=== PATIENT | female | born 1990 | race Caucasian/White ===

== ENCOUNTER 2024-09-01 22:25 | Emergency (ER) | payer OTHER, SELFPAY ==
--- NOTE | ~2024-09-01 | CT_ITS ---
CT abdomen pelvis w con Ordering provider: Iban Briones MD History: 34 years Female with . LOWER abdominal pain X 2 WEEKS . Comparison: None. Technique: CT abdomen and pelvis with IV and without oral contrast. Automated exposure control and it erative reconstruction technique were employed. The dose-length product was 738.74 mGy-cm. 100 mL Omn ipaque 350 was given IV. Findings: VISUALIZED LOWER CHEST: Dependent atelectatic changes. UPPER ABDOMINAL ORGANS: Liver: Normal. Gallbladder: Normal. Spleen: Normal. Stomach/duodenum: Normal. Pancreas: Normal. Adrenals: Normal. Kidneys: Tiny cyst in the left kidney upper pole. PELVIC ORGANS: The bladder is underfilled with slightly thickened wall. Evaluation for cystitis advis ed. Uterus and ovaries are unremarkable. Follicles are seen in the right ovary. BOWEL AND MESENTERY: Colon: No evidence of diverticulitis. Fecal material is loaded in the colon which may indicate consti pation. Normal appendix. Small Bowel: Normal. No obstruction. Peritoneum/mesentery: No free air or free fluid. No mesenteric lymphadenopathy. RETROPERITONEUM: Normal aorta. No retroperitoneal lymphadenopathy. MUSCULOSKELETAL: Superficial soft tissues: The superficial soft tissues are normal. Bones: Normal spine. IMPRESSION: 1. No evidence of appendicitis, diverticulitis or intestinal obstruction. 2. Possible constipation. 3. Underfilled urinary bladder with thickened wall. Evaluation for cystitis advised. Reviewed, dictated and finalized at location A. IMPRESSION: 1. No evidence of appendicitis, diverticulitis or intestinal obstruction. 2. Possible constipation. 3. Underfilled urinary bladder with thickened wall. Evaluation for cystitis ad vised.
[2024-09-01 22:30] VITALS: BP 115/76; PULSE 90; RESP 18; TEMP 35.9; O2SAT 99
--- NOTE | 2024-09-01 22:35 | ED_ITS ---
HPI - Abdominal Pain General Chief Complaint: Abdominal Pain Stated Complaint: abdominal pain Time Seen by Provider: 09/01/24 22:35 Source: patient Mode of arrival: ambulatory Limitations: no limitations History of Present Illness HPI narrative: 34-year-old female presents with a 2 week history of -- diffuse abdominal pain. Pain moves from 1 spot to the other. Today pain was noted to be very severe, which prompted her come to the ED. currently pain is rated as 3/10. No radiation of the pain. Pain becomes worse with eating. History of a 7 years ago. Patient has nausea without with 1 episode of vomiting prior to coming to the ED patient has chills. MD elicited complaint: abdominal pain Pertinent past history: other ( A 7 years ago) Onset (ago): week(s) ( 2 weeks) Pain Consistency: intermittent Location: diffuse Severity: moderate Pain scale (0-10): 3 Quality: cramping and aching Radiation: none Migration to: no migration Exacerbating factors: eating Relieving factors: nothing Associated symptoms: denies other symptoms, nausea and vomiting Related Data Date of Last Menstrual Period: 08/11/24 Patient : No Home Medications ?Medication ?Instructions ?Recorded ?Confirmed ?Last Taken ?Type No Home Medications 09/01/24 09/01/24 Unknown History Allergies Allergy/AdvReac Type Severity Reaction Status Date / Time amoxicillin (From Augmentin) Allergy Rash Verified 09/01/24 22:52 cefaclor (From Ceclor) Allergy Rash Verified 09/01/24 22:52 clavulanic acid (From Allergy Rash Verified 09/01/24 22:52 Augmentin) Review of Systems 2 Review of Systems: All systems reviewed & are unremarkable except as noted in HPI and below Constitutional: Constitutional: Reports as per HPI Eyes: Eyes: Reports as per HPI and Reports no additional eye complaints ENT: Reports system reviewed and no additional complaints, except as documented and Reports as per HPI Cardiovascular: Cardiovascular: Reports as per HPI and Reports no additional cardiovascular complaints Respiratory: Respiratory: Reports as per HPI and Reports no additional respiratory complaints Gastrointestinal: Gastrointestinal: Reports as per HPI, Reports no additional gastrointestinal complaints, Reports abdominal pain, Reports nausea and Reports vomiting Genitourinary: Genitourinary: Reports no additional female genitourinary complaints and Reports as per HPI Musculoskeletal: Musculoskeletal: Reports no additional musculoskeletal complaints and Reports as per HPI Integumentary/Breasts: Skin/Breast: Reports system reviewed and no additional complaints, except as docu and Reports as per HPI Neurologic: Reports system reviewed and no additional complaints, except as documented and Reports as per HPI Psychiatric: Psychiatric: Reports no additional psychiatric complaints and Reports as per HPI Endocrine: Endocrine: Reports no additional endocrine complaints and Reports as per HPI Hematologic/Lymphatic: Hematologic/Lymphatic: Reports no additional hematologic/lymphatic complaints and Reports as per HPI Allergic/Immunologic: Allergic/Immunologic: Reports no additional allergic/immunologic complaints and Reports as per HPI Exam 2 Narrative: afebrile. Saturation of 99% on room air with a Const: General: no acute distress Nutritional Appearance: well nourished Orientation/consciousness: patient oriented x3 Limitations: no limitations HENMT: Head: normal to inspection Ears: external ears normal F shweta/Nose/Sinus: Normal external nose present Face and sinus: normal facial exam Mouth: Yes Normal oral and palatal mucosa present Throat: posterior oropharynx normal Eyes: Conjunctivae: conjunctivae normal Pupils: Equal, round and reactive pupils present EOM: EOMs intact bilaterally Direct Ophthalmoscopy: no photophobia Neck: Neck: normal visual inspection and no lymphadenopathy Chest: Chest palpation & inspection: normal inspection of the chest Resp: Effort & Inspection: normal respiratory effort Auscultation: clear to auscultation bilaterally Cardio: Rate: regular rate Rhythm: regular rhythm GI: GI Palp: Yes Soft to palpation Auscultation: normal bowel sounds O ther: No tenderness/ rigidity /rebound. : General: Yes no CVA tenderness Back/Spine/Pelvis: Back: no CVA tenderness Skin: General skin exam: normal color Rashes: no rashes Wounds: no wounds Neuro: General: patient oriented x3, moves all extremities, no meningeal signs, no focal motor deficits and CN's II-XI intact bilaterally Cranial nerves: Yes Nystagmus not present Speech: normal speech Gait exam (Neuro): Normal gait present Extrem: General: normal to inspection and no clubbing, cyanosis or edema Psych: Mental Status: mental status grossly normal Affect: normal affect Attitude: cooperative Course Course Emergency Course: Abdominal pain-- CT of the abdomen and pelvis with contrast revealed thickened wall of the Urinary bladder with constipation. elevated ALT and alkaline phosphatase-- CT revealed an unremarkable gallbladder. Could be secondary to fatty liver. Vital Signs Vital signs: Vital Signs Temperature 35.9 C L 09/01/24 22:30 Pulse Rate 90 09/01/24 22:30 Respiratory Rate 18 09/01/24 22:30 Blood Pressure 115/76 09/01/24 22:30 Pulse Oximetry 99 09/01/24 22:30 Oxygen Delivery Room Air 09/01/24 22:30 Temperature 35.9 C L 09/01/24 22:30 Pulse Rate 90 09/01/24 22:30 Respiratory Rate 18 09/01/24 22:30 Blood Pressure 115/76 09/01/24 22:30 Pulse Oximetry 99 09/01/24 22:30 Oxygen Delivery Room Air 09/01/24 22:30 MDM - Abdominal Pain MDM Narrative Medical decision making narrative: Abdominal pain transaminitis Differential Diagnosis Differential diagnosis: Likely abdominal pain and calculus of kidney Medical Records Attestation: I reviewed the patient's medical records. Lab Data Attestation: I reviewed the patient's lab results. 09/01/24 22:52 09/01/24 22:52 Labs: Lab Results 09/01/24 Range/Units 22:52 WBC 14.8 H (4.8-10.8) K/mm3 RBC 4.62 (4.20-5.40) M/mm3 Hgb 12.9 (12.0-15.0) g/dL Hct 40.4 (35.0-49.0) % MCV 87.4 (78.0-102.0) fL MCH 27.9 (27.0-31.0) pg MCHC 31.9 L (32-36) g/dL RDW 13.9 (11.6-14.4) % Plt Count 368 (150-420) K/mm3 MPV 9.4 (9.2-11.8) fl Immature Gran % (Auto) Not Reportable Neut % (Auto) Not Reportable Lymph % (Auto) Not Reportable [place] % (Auto) Not Reportable Eos % (Auto) Not Reportable Baso % (Auto) Not Reportable Lymph # (Auto) Not Reportable [place] # (Auto) Not Reportable Eos # (Auto) Not Reportable Baso # (Auto) Not Reportable Abs Immat Gran (auto) Not Reportable Absolute Neuts (auto) Not Reportable Absolute Nucleated RBC Not Reportable Total Counted 100 Neutrophils % (Manual) 55 (46-73) % Band Neutrophils % 0 (0-6) % Lymphocytes % (Manual) 23 (18-44) % Monocytes % (Manual) 7 (3-9) % Eosinophils % (Manual) 14 H (1-6) % Basophils % (Manual) 1 (0-1) % Nucleated RBC % Not Reportable Abs Neuts (Manual) 8.14 H (1.7-7.2) K/mm3 Abs Lymphs (Manual) 3.40 (1.1-4.5) K/mm3 Abs Monocytes (Manual) 1.03 H (0.1-0.90) K/mm3 Absolute Eos (Manual) 2.07 H (0.02-0.50) K/mm3 Abs Basophils (Manual) 0.14 H (0-0.1) K/mm3 Platelet Estimate Adequate (Adequate) Schistocytes Not Reportable PT 10.4 (9.50-12.1) Seconds INR 0.9 Sodium 141 (136-145) mmol/L Potassium 3.8 (3.5-5.1) mmol/L Chloride 105 (98-108) mmol/L Carbon Dioxide 26 (21-32) mmol/L Anion Gap 10 (4-12) mmol/L BUN 13 (7-18) mg/dL Creatinine 0.77 (0.55-1.02) mg/dL Estim Creat Clear Calc 100 ml/min Estimated GFR > 60 (59 - ) Glucose 110 H (70-99) mg/dL Calculated Osmolality 293 (285-295) mOsm/kg Lactic Acid 0.7 (0.4-2.0) mmol/L Calcium 9.0 (8.5-10.1) mg/dL Total Bilirubin 0.3 (0.00-1.00) mg/dL AST 26 (15-37) U/L ALT 77 H (14-59) U/L Alkaline Phosphatase 123 H (46-116) U/L Total Protein 7.5 (6.4-8.2) g/dL Albumin 3.7 (3.4-5.0) g/dL Lipase 34 (16-77) U/L Urine Color Yellow (Yellow) Urine Appearance Clear (Clear) Urine pH 5.5 (5.0-8.0) Ur Specific [place] >= 1.030 H (1.010-1.020) Urine Protein Trace H (Negative) Urine Glucose (UA) Negative (Negative) Urine Ketones Trace H (Negative) Ur Blood (Man) 1+ H (Negative) Urine Nitrate Negative (Negative) Urine Bilirubin 1+ H (Negative) Urine Urobilinogen 0.2 (0.2-1.0) mg/dL Leukocyte Esterase Rfl Negative (Negative) LUNA/UL Urine RBC 0-2 (0-2) /hpf Urine WBC 0-3 (0-3) /hpf Ur Squamous Epith Cells Moderate H (Few) /hpf Urine Bacteria 1+ H (None) /hpf Urine Mucus Moderate H /lpf Urine Test Negative Imaging Data Radiologist's impression: ITS Impressions Abdomen/Pelvis CT 09/01/24 23:58 IMPRESSION: 1. No evidence of appendicitis, diverticulitis or intestinal obstruction. 2. Possible constipation. 3. Underfilled urinary bladder with thickened wall. Evaluation for cystitis advised. Discharge Plan Discharge Clinical Impression: Transaminitis Abdominal pain Qualifiers: Abdominal location: unspecified location Qualified Code(s): R10.9 - Unspecified abdominal pain Patient Disposition: Home Condition: Stable Instructions: Antibiotic Form, Acute Abdominal Pain (ED), Transaminitis (ED) Patient Language: Vietnamese Prescriptions: No Action No Home Medications Follow-up/Referrals: UNKNOWN,DOCTOR [Non-Staff] - Time of Disposition: 00:19
[2024-09-01 22:56] LABS: Add Urine Microscopic? YES; Appearance Urine Clear (Clear); Bilirubin Urine 1+ (Negative); Blood Urine 1+ (Negative); Color Urine Yellow (Yellow); Glucose Urine UA Negative (Negative); Hematocrit 40.4 % (35.0-49.0); Hemoglobin 12.9 g/dL (12.0-15.0); Ketones Urine Trace (Negative); Leukocyte Esterase Ur Negative LEU/UL (Negative); Mean Corpuscular HGB Conc 31.9 g/dL (32-36); Mean Corpuscular Hemoglobin 27.9 pg (27.0-31.0); Mean Corpuscular Volume 87.4 fL (78.0-102.0); Mean Platelet Volume 9.4 fl (9.2-11.8); Nitrate Urine Negative (Negative); Platelet Count Result 368 K/mm3 (150-420); Protein Urine Trace (Negative); Red Blood Count 4.62 M/mm3 (4.20-5.40); Red Cell Distribution Width 13.9 % (11.6-14.4); Specific Grav Ur >= 1.030 (1.010-1.020); Urobilinogen Urine 0.2 mg/dL (0.2-1.0); White Blood Count 14.8 K/mm3 (4.8-10.8); pH Urine 5.5 (5.0-8.0)
--- OUTSIDE RECORDS SUMMARY | 2024-09-01 22:58 | XMS_ITS | Referral Summary ---
Author Organization [address] Address [address] [place] [id number] Care Team Providers Care Farm Facility Manager Name Role Phone Hafsa Wilks NP Primary Care Provider [phone] Belkys Bolton CNM Unavailable Mirlande Freire CNM Unavailable [phone] Allergies Active Allergy Reactions Criticality Noted Date Comments Amoxicillin-Pot Clavulanate Rash Medium 08/24/19 18 Occurred when she was a child. Occurred when she was a child. Cefaclor Rash Medium 08/23/2017 Occurred as a child. Occurred as a child. Medications PNV with [id number] ( Vitamin Plus Low Iron) 27 mg iron- 1 mg tabletIndication s:Encounter for supervision of other normal in first trimester Take 1 tablet by mouth daily 30 tablet 11 3 Active Additional Information Patient not taking.Reported on 12/03/2023 docusate sodium (COLACE) 100 mg capsuleIndicatio ns:constipation, Stool Softener Take 1 capsule (100 mg total) by mouth 2 (two) times a day 4 Active Additional Information Patient not taking.Reported on 12/03/2023 ibuprofen (ADVIL,MOTRIN) 600 mg tabletIndication s:Cramps Take 1 tablet (600 mg total) by mouth every 6 (six) hours as needed for pain 4 Active Additional Information Patient not taking.Reported on 12/03/2023 sertraline (ZOLOFT) 50 mg tablet Take 1 tablet (50 mg total) by mouth daily 30 tablet 11 4 Active Additional Information Patient not taking.Reported on 12/03/2023 albuterol HFA (PROVENTIL HFA,VENTOLIN HFA,PROAIR HFA) 90 mcg/actuation inhaler Inhale 2 puffs every 6 (six) hours as needed for shortness of breath 1 each [address] (PROTONIX) 40 mg EC tablet Take 1 tablet (40 mg total) by mouth daily 30 tablet 1 4 Active Active Problems Problem Noted Date Diagnosed Date 40 weeks gestation of 08/11/2023 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 Patient was to follow up with press operator helper for testing but was unable to attend appt. Pt to make appt with press operator helper. History of section 12/30/2022 Supervision of normal 12/30/2022 8 weeks gestation of 12/25/2022 Assessment & Plan (12/25/2022 10:44 AM CDT): Continue with vitamin, folic acid and pre care per lead sales consultant Breast FNA Myxoid Fibroadeno ma- concern is for association with Lopez Complex 12/18/2022 Cancer Staging:Clinical: Unsigned Assessment & Plan (12/25/2022 10:44 AM CDT): Images from the original note were not included. Referral to genetics for possible lopez syndrome. Explained to patient Individuals with Lopez complex are at increased risk of developing noncancerous (benign) tumors called myxomas in the heart (cardiac myxoma) and other parts of the body. Cardiac myxomas may be found in any of the four chambers of the heart and can develop in more than one chamber. These tumors can block the flow of blood through the heart, causing serious complications or sudden . Myxomas may also develop on the skin and in internal organs. Skin myxomas appear as small bumps on the surface of the skin or as lumps underneath the skin. In Lopez complex, myxomas have a tendency to recur after they are removed. Echo of the heart ordered Anxiety 07/23/2022 Assessment & Plan (12/03/2023 3:47 PM CDT): Possibly playing a role with symptoms but will rule out other origins first. Assessment & Plan (07/23/2022 12:35 PM LANCE CREWMEMBER/MLRS SERGEANT): Started worsening after traumatic birthing experience. Has never been on medication. She is currently seeing a counselor for about 1 month now. We discussed medication but will give counseling a chance first as she is stable. She will reach out sooner if she wants to discuss medication use. Immunizations Immunization Administration Dates Next Due Influenza, Unspecified 05/26/2023(Deferr ed: Patient Refused),07/23/2022(Deferred: Patient Refused),05/26/2022(Deferred: Patient Refused),07/23/2021(Deferred: Patient Refused),02/23/2021(Deferred: Patient Refused) Tdap 05/15/2023,08/26/2017 Social History Tobacco Use Types Packs/Day Years Used Date Smoking Tobacco: Never Passive Smoke Exposure: Never Smokeless Tobacco: Never Tobacco Cessation:Counseling Given: Not Answered AUDIT-C Answer Date Recorded Q1: How often do you have a drink containing alcohol? Never 12/30/2022 Q2: How many drinks containi ng alcohol do you have on a typical day when you are drinking? Patient does not drink Q3: How often do you have si x or more drinks on one occasion? Never 12/30/2022 PHQ-2 Answer Date Recorded PHQ-2 Total Score (If total score is 3 or more points, staff should administer the PHQ-9) 0 12/03/2023 [place] Depression Scale Answer Date Recorded [place] Depression Scale Total 13 09/19/2023 The thought of harming myself has occurred to me . Never 09/19/2023 Personal Safety Answer Date Recorded Have you ever been in or are you currently in a harmful physical or emotional relationship or is someone making you feel afraid or unsafe? Denies 11/23/2023 Comments Unknown Sex and Gender Information Value Date Recorded Sex Assigned at Not on file Legal Sex Female 1:53 AM LANCE CREWMEMBER/MLRS SERGEANT Gender Identity Not on file Sexual Orientation Not on file Last Filed Vital Signs Vital Sign Reading Time Taken Comments Blood Pressure 100/70 12/03/2023 2:37 PM CDT Pulse 87 12/03/2023 2:37 PM CDT Temperature 36.6 C (97.9 F) 12/03/2023 2:37 PM CDT Respiratory Rate 20 11/24/2023 4:20 AM CDT Oxygen Saturation 99% 12/03/2023 2:37 PM CDT Inhaled Oxygen Concentration - - Weight 97.1 kg (214 lb) 12/03/2023 2:37 PM CDT Height 162.6 cm (5' 4 ) 12/03/2023 2:37 PM CDT Body Mass Index 36.73 12/03/2023 2:37 PM CDT Plan of Treatment Not on file Medical Devices Implanted Type Area Preschool Assistant Principal Device Identifier Shelf Expiration Date Model / Serial / Lot Trippy Mammomark Cormark Tissue Bowtie Marker Breast Biopsy Collagen [id number] - [id number] Implanted:Qty: 1 on 12/10/2022 at [facility] Trippy [id number] 03/20/2024 [id number] / / [id number] Procedures Procedure Name Priority Date/Time Associated Diagnosis Comments HEPATITIS C ANTIBODY Routine 12/30/2022 1:30 PM CDT Encounter for supervision of other normal in first trimester PAP AND HIGH RISK HPV, REFLEX TO GENOTYPING Routine 10/16/2022 11:00 AM CDT Well woman exam with routine gynecological exam from Last 3 Months or Most Recently Relevant to Health Maintenance Results * Hepatitis C antibody (12/30/2022 1:30 PM CDT) Hep C Ab Nonreactive Nonreactive [facility] Comment: Interpretive Data Nonreactive: Antibodies to HCV not detected. Does NOT exclude the possibility of recent exposure to HCV. Equivocal: Equivocal for HCV antibodies. Supplemental molecular testing will be automatically performed to determine infection status in accordance with current CDC screening recommendations. Reactive: Positive for HCV antibodies. This may represent current or past HCV infection. Supplemental molecular testing will be automatically performed to determine current infection status in accordance with current CDC screening recommendations. Interpretive data was last revised on 2019. Blood 12/30/2022 1:30 PM CDT 12/30/2022 7:58 PM CDT Belkys Bolton CNM LAB MICROBIOLOGY - GENERA L ORDERABLES Final Result [facility] [address] Department [place] [address] * Pap and High Risk HPV, reflex to Genotyping (10/16/2022 11:00 AM CDT) Thin prep (Pap test) 10/16/2022 11:00 AM CDT 10/23/2022 7:55 AM CDT Narrative PATHOLOGY [facility] - 10/24/2022 3:04 PM CDT EPIC results best viewed via link to PDF [id number] [place], [place] [address] Tele: Rosy Oliveros MD - Phd Internship CYTOLOGY REPORT Note to Patients: This report may contain a detailed description of human tissue sent by a health care provider to the laboratory for pathologic evaluation. The content of this report is essential for diagnosis and may provide important critical findings. This information may be unfamiliar to patients to review without a medical professional present. It is advised that the patient review this report in the presence of a health care provider who can answer questions and explain the details. Patient Name: SUSY LR Address: [address] [place] [address], [place] [address] Gender: F : 1990 (Age: 32) Service: Location: [facility] : [phone] [facility] #: [id number] Patient Type: [facility] SPECIMEN Taken: 10/16/2022 Reported: 10/24/2022 Physician(s): RANCHO Khan Dr., M.D. FINAL DIAGNOSIS: SOURCE OF SPECIMEN - ThinPrep Pap and HPV w/ reflex Genotyping: STATEMENT OF ADEQUACY Source: Cervical/Endocervical - Satisfactory for interpretation - Endocervical/Transformation zone component absent or insufficient - Case screened using computer assisted imaging technology GENERAL CATEGORIZATION: - Negative for intraepithelial lesion or malignancy jxm/10/24/2022 15:04JAZMYN Kilgore (ASCP) Report Reviewed and Electronically Signed By JAZMYN Kilgore (ASCP)Clerical Data Follow A; G0145 DIAGNOSIS COMMENT: Ancillary Testing: HPV High Risk Group (16, 18, 31, 33, 35, 39, 45, 51, 52, 56, 58, 59, 66 and 68) - Not Detected Reference Range: Not Detected This test was performed using the COCO 4800 CLINICAL DIAGNOSIS AND HISTORY Last Menstrual Period: 10/08/22 Menstrual History: Regular Cycles REPORT IMAGES AND/OR SCANNED DOCUMENTS ONLY VIEWABLE IN PDF FORMAT The Pap test is a screening test used to aid in the detection of cervical cancer and its precursors. It should not be the sole means by which malignant and premalignant lesions are diagnosed. Both false negative and false positive results may occur. It also has poor sensitivity for the detection of endometrial lesions and should not be used to evaluate suspected endometrial abnormalities. For these reasons it is most important to obtain Pap tests at regular intervals, as recommended by your physician or nurse practitioner. Belkys Bolton [facility] LAB CYTOLOGY ORDERABLES F inal Result PATHOLOGY [facility] Laboratory Receiving [address] [place] [address] from Last 3 Months or Most Recently Relevant to Health Maintenance Insurance [facility] OPEN ACCESS CIGNA CIGNA Advance Directives For more information, please contact: [phone] * Full Code (Latest Code Status on File) Date Activated Date Inactivated Comments 08/11/2023 4:12 PM 08/13/2023 3:30 PM * Full Code Date Activated Date Inactivated Comments 08/11/2023 2:57 AM 08/11/2023 4:12 PM Full CPR in case of cardiopulmonary arrest Care Teams Farm Facility Manager Relationship Specialty Start Date End Date Hafsa Wilks NP PCP - General Family Medicine 07/23/22 Belkys Bolton CNM Zinc Etcher Obstetrics and Gynecology 07/23/22 Mirlande Freire CNM Nurse Practitioner Obstetrics and Gynecology 08/12/23
--- OUTSIDE RECORDS SUMMARY | 2024-09-01 22:58 | XMS_ITS | Clinical Summary ---
Author Organization [facility] Address [address] [place] [address] Care Team Providers Care Custom Designer Name Role Phone Unavailable Primary Care Provider Unavailabl e Source Comments [facility],non-owned Affiliates and Associated Physician Practices is amultiple site organization consisting of ambulatory clinics and hospital sitesin [place], [place], [place] and [place]. This disclosure is being madepursuant to the Care Everywhere program and may not contain all information available regarding this patient. Last updated 18.[facility] Allergies Active Allergy Reactions Criticality Noted Date Comments Amoxicillin-Pot Clavulanate Rash Medium 08/24/19 18 Occurred when she was a child. Cefaclor Rash Medium 08/23/2017 Occurred as a child. Medications * Be aware that medications may not be up to date on this document. Alwaysverify current medications with the patient. Medication Sig Dispensed Refills Start Date End Date Status predniSONE (DELTASONE) 10 MG tablet Take 3 tabs x 2 days, then take 2 tabs x 2 days, then take 1 tab x 2 days, then take 1/2 tab x 2 days, then discontinue 13 tablet 12/22/2020 Active Active Problems No known active problems Social History Tobacco Use Types Packs/Day Years Used Date Smoking Tobacco: Never Smokeless Tobacco: Never Alcohol Use Standard Drinks/Week Comments Not Currently 0 (1 standard drink = 0.6 oz pur e alcohol) PHQ-2 Answer Date Recorded PHQ2 TOTAL SCORE 0 12/22/2020 Sex and Gender Information Value Date Recorded Sex Assigned at Not on file Gender Identity Not on file Sexual Orientation Not on file Last Filed Vital Signs Vital Sign Reading Time Taken Comments Blood Pressure 124/80 12/22/2020 2:18 PM CDT Pulse 88 12/22/2020 2:18 PM CDT Temperature 36.6 C (97.8 F) 12/22/2020 2:18 PM CDT Respiratory Rate 16 12/22/2020 2:18 PM CDT Oxygen Saturation 100% 12/22/2020 2:18 PM CDT Inhaled Oxygen Concentration - - Weight 89.4 kg (197 lb) 12/22/2020 2:18 PM CDT Height 162.6 cm (5' 4 ) 12/22/2020 2:18 PM CDT Body Mass Index 33.81 12/22/2020 2:18 PM CDT Plan of Treatment Health Maintenance Due Date Last Done Comments PAP SMEAR 1990 HIV SCREENING 2006 HEPATITIS C SCREENING 01/28/2009 DTAP/TDAP/TD VACCINES (1 - Tdap) 2010 HEPATITIS B VACCINE (1 of 3 - 19+ 3-dose series) 2010 COVID-19 VACCINE (1 - 2023-2 5 season) 2024 DEPRESSION SCREENING 05/26/2024 INFLUENZA VACCINE (Season Ended) 2025 ZOSTER VACCINE (1 of 2) 2041 HIB VACCINE Aged Out No longer eligi ble based on patient's age to complete this topic HPV VACCINE Aged Out No longer eligi ble based on patient's age to complete this topic MENINGOCOCCAL (Group B) VACC INE SHARED DECISION-MAKING Aged Out No longer eligibl e based on patient's age to complete this topic MENINGOCOCCAL GROUPS A/C/Y/W VACCINE Aged Out No longer eligible b ased on patient's age to complete this topic PNEUMOCOCCAL VACCINE Aged Out No long er eligible based on patient's age to complete this topic
--- OUTSIDE RECORDS SUMMARY | 2024-09-01 22:58 | XMS_ITS | Clinical Summary ---
Author Organization [address] Address [address] [place] [id number] Care Team Providers Care Pen And Pencil Repairer Name Role Phone Hafsa Wilks NP Primary Care Provider [phone] Belkys Bolton CNM Unavailable Mirlande Freire CNM Unavailable [phone] Allergies Active Allergy Reactions Criticality Noted Date Comments Amoxicillin-Pot Clavulanate Rash Medium 08/24/19 18 Occurred when she was a child. Occurred when she was a child. Cefaclor Rash Medium 08/23/2017 Occurred as a child. Occurred as a child. Medications PNV with [id number] ( Vitamin Plus Low Iron) 27 mg [...] time. Patient was to follow up with exam proctor for testing but was unable to attend appt. Pt to make appt with exam proctor. History of section 12/30/2022 Supervision of normal 12/30/2022 8 weeks gestation of 12/25/2022 Assessment & Plan (12/25/2022 10:44 AM CDT): Continue with vitamin, folic acid and pre care per rotary driller helper Breast FNA Myxoid Fibroadeno ma- concern is [...] first. Assessment & Plan (07/23/2022 12:35 PM TOOL CRIB CLERK): Started worsening after traumatic birthing experience. Has [...] Refused),07/23/2021(Deferred: Patient Refused),02/23/2021(Deferred: Patient Refused) Tdap 05/15/2023,08/26/2017 Surgical History Surgery Date Site/Laterality Comments SECTION 08/24/2017 BREAST BIOPSY 12/10/2022 Left BREAST BIOPSY 12/18/2022 Left Medical History Medical History Date Comments Lopez complex Fibroadenoma of breast MYXOID Acid reflux Family History Medical History Relation Name Comments No Known Problems Father Skin cancer Mother Relation Name Status Comments Father Alive Mother Alive Social History Tobacco Use Types Packs/Day Years [...] staff should administer the PHQ-9) 0 12/03/2023 [place] Depression Scale Answer Date Recorded Belle[place] Depression Scale Total 13 09/19/2023 The thought [...] on file Legal Sex Female 1:53 AM TOOL CRIB CLERK Gender Identity Not on file Sexual Orientation Not on file Obstetrics History Para Term AB IAB SAB Ectopic Multiple Livin g Live Births 2 2 2 0 2 2 Date Outcome GA Total Labor Labor/2nd/3rd Weight Sex Type Anes PTL Francine A1 A5 Name Clin 2017 Term 40w 1d 3.09 kg (6 lb 13 oz) M CS-LTr anv Combin ed Spinal /Epidu ral N Livin g MARISA VELOZ,B OY1KE LSEA Anibal benson MD Complications:Failure to Pro kristal in First Stage, Intolerance Delivery Location:[facility] ([facility] ) 2023 Term 40w 2d 0h 50m 0h 45m/0h 05m 3.005 kg (6 lb 10 oz) F Vagina l None N Livin g 8 9 Haizl ey M Marisa Arrieta nn, Belkys Peace CNM Complications:None Delivery Location:[facility] ([facility]) Last Filed Vital Signs Vital Sign Reading [...] 12/03/2023 2:37 PM CDT Plan of Treatment Health Maintenance Due Date Last Done Comments Hepatitis B Screening 2009 Cervical Cancer Screening 10/17/2023 10/16/2022 Regular Well Visit/Exam 18-64 10/17/2023 10/16/2022 Depression Screening 12/02/2024 12/03/2023, 09/19/2023, 04/10/2023, Additional history exists Influenza Vaccine (Season Ended) 2025 DTaP/Tdap/Td Vaccine (3 - Td or Tdap) 05/15/2033 05/15/2023, 08/26/2017 Hepatitis C Screening Completed 12/30/2022 HPV Vaccines Aged Out No longer eligi ble based on patient's age to complete this topic Pneumococcal vaccine <65 Aged Out No longer eligible based on patient's age to complete this topic Varicella Vaccines Discontinued Medical Devices Implanted Type Area Sales Agent Business Services Device Identifier Shelf Expiration Date Model / Serial / Lot Lamppost Mammomark Cormark Tissue Bowtie Marker Breast Biopsy Collagen [id number] - [id number] Implanted:Qty: 1 on 12/10/2022 at [facility] Lamppost [id number] 03/20/2024 [id number] / / [id number] Procedures Procedure Name Priority Date/Time Associated Diagnosis [...] CDT) Hep C Ab Nonreactive Nonreactive [facility] Comment: Interpretive Data Nonreactive: Antibodies to [...] 1:30 PM CDT 12/30/2022 7:58 PM CDT us Belkys Bolton CNM LAB MICROBIOLOGY - GENERA L ORDERABLES Final Result [facility] [address] Department of Laboratories [place], [place] [id number] * Pap and High Risk HPV, reflex to Genotyping (10/16/2022 11:00 AM CDT) Thin prep (Pap test) 10/16/2022 11:00 AM CDT 10/23/2022 7:55 [address] CD[address] [facility] - 10/24/2022 3:04 PM CDT EPIC results best viewed via link to PDF [address] [address] Tele: Rosy Oliveros MD - Oncology Social Work CYTOLOGY REPORT Note to Patients: This report [...] questions and explain the details. Patient Name: ESPINOZA LR Address: [address] [place] [id number] Gender: F : 1990 (Age: 32) Service: Location: [facility] #: [id number] [place] [facility] [place] Taken: 10/16/2022 Reported: 10/24/2022 Physician(s): RANCHO [...] your physician or nurse practitioner. Belkys Bolton [facility] LAB CYTOLOGY ORDERABLES F inal Result PATHOLOGY [facility] Laboratory Receiving [address] [place] [address] from Last 3 Months or Most Recently Relevant to Health Maintenance Insurance [employer] OPEN ACCESS CIGNA CIGNA Advance Directives For more information, please contact: [phone] * Full Code (Latest Code Status on File) Date Activated Date Inactivated Comments 08/11/2023 4:12 PM 08/13/2023 3:30 PM * Full Code Date Activated Date Inactivated Comments 08/11/2023 2:57 AM 08/11/2023 4:12 PM Full CPR in case of cardiopulmonary arrest Care Teams Pen And Pencil Repairer Relationship Specialty Start Date End Date Hafsa Wilks NP PCP - General Family Medicine 07/23/22 Belkys Bolton CNM Ict Support And Test Engineers Obstetrics and Gynecology 07/23/22 Mirlande Freire CNM Nurse Practitioner Obstetrics and Gynecology 08/12/23
--- OUTSIDE RECORDS SUMMARY | 2024-09-01 22:58 | XMS_ITS | Clinical Summary ---
Author Organization [facility] Address [address] [place] [address] Phone Care Team Providers Care Rigging Up Worker Name Role Phone Unavailable Primary Care Provider Unavailabl e Allergies Active Allergy Reactions Criticality Noted Date Comments Amoxicillin-Pot Clavulanate Rash Medium 08/24/19 18 Occurred when she was a child. Cefaclor Rash Medium 08/23/2017 Occurred as a child. Medications multivit,calc,mi ns/iron/folic (ONE DAILY [facility]OM[facility] HE[facility] ORAL) Take by mouth. Active Active Problems No known active problems Resolved Problems Problem Noted Date Diagnosed Date Resolved Date History of delivery 08/24/2017 12/10/2018 Normal labor 08/23/2017 12/10/2018 Immunizations Immunization Administration Dates Next Due (ADACEL/BOOSTRIX)(10 YR UP) TDAP VACCINE, 0.5ML, IM 08/26/2017 Family History Relation Name Status Comments Father Alive Mother Alive Sister Alive Social History Tobacco Use Types Packs/Day Years Used Date Smoking Tobacco: Never Smokeless Tobacco: Never Alcohol Use Standard Drinks/Week Comments No 0 (1 standard drink = 0.6 oz pur e alcohol) Comments No Sex and Gender Information Value Date Recorded Sex Assigned at Not on file 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 Gender Identity Not on file Sexual Orientation Not on file Last Filed Vital Signs Vital Sign Reading Time Taken Comments Blood Pressure 122/82 09/03/2021 3:29 PM CDT Pulse 90 08/28/2017 6:54 AM CDT Temperature 36.9 C (98.5 F) 01/04/2019 12:10 PM CDT Respiratory Rate 18 01/04/2019 12:10 PM CDT Oxygen Saturation 100% 01/04/2019 12:10 PM CDT Inhaled Oxygen Concentration - - Weight 93.9 kg (207 lb) 09/03/2021 3:29 PM CDT Height 162.6 cm (5' 4 ) 09/03/2021 3:29 PM CDT Body Mass Index 35.53 09/03/2021 3:29 PM CDT Plan of Treatment Health Maintenance Due Date Last Done Comments HEPATITIS B VACCINES (1 of 3 - 19+ 3-dose series) 2010 INFLUENZA VACCINE (#1) 2023 PAP SMEAR 09/03/2024 09/03/2021, 12/10/2018 PAP SMEAR 09/03/2024 09/03/2021, 12/10/2018 CERVICAL CANCER SCREENING 09/03/2026 HPV/Cotest (21-29) 09/03/2026 09/03/2021 HPV/Cotest (30-65) 09/03/2026 09/03/2021 DTAP/TDAP/TD VACCINES (2 - T d or Tdap) 08/27/2027 08/26/2017 HPV VACCINES Aged Out No longer eligi ble based on patient's age to complete this topic PNEUMOCOCCAL VACCINE 0-49 YEARS Aged Out No longer eligible b ased on patient's age to complete this topic Medical Devices Implanted Type Area Metrology Manager Device Identifier Shelf Expiration Date Model / Serial / Lot Barrier Seprafilm 5x6in [id number] - [id number] Implanted:Qty : 1 on 08/24/2017 by Anibal López MD at [facility] Adhesion Barrier N/A: Abdomen [employer] [id number] 08/24/2019 [id number] / / [id number] Procedures Procedure Name Priority Date/Time Associated Diagnosis Comments CERV/VAG CYTO SCREEN PAP RLFX HPV Routine 09/03/2021 12:00 AM CDT Well woman exam with routine gynecological exam from Last 3 Months or Most Recently Relevant to Health Maintenance Results * CERV/VAG CYTO SCREEN PAP RLFX HPV (09/03/2021 12:00 AM CDT) [facility] Comment:SCREENING LAST MENSTRUAL PERIOD [facility] Comment:INFORMATION NOT PROV IDED PREV PAP: [facility] Comment:INFORMATION NOT PROV IDED PREV BX: [facility] Comment:INFORMATION NOT PROV IDED SOURCE [facility] Comment:Endocervix ADEQUACY: [facility] Comment: Satisfactory for evaluation. Endocervical/transformation zone component absent. Age and/or menstrual status not provided PAP INTERP [facility] Comment:Negative for intraep ithelial lesion or malignancy. COMMENT (PAP TEST) [facility] Comment: This Pap test has been evaluated with computer assisted technology. BOX CAR WASHER: [facility] Comment: RAE, CT(ASCP) CT Screening location: [facility] [place] [address] EXPLANATORY NOTE [facility] Comment: EXPLANATORY NOTE: The Pap is a screening test for cervical cancer. It is not a diagnostic test and is subject to false negative and false positive results. It is most reliable when a satisfactory sample, regularly obtained, is submitted with relevant clinical findings and history, and when the Pap result is evaluated along with historic and current clinical information. Test Performed at: [facility] [place] [address] [place] [address] [facility] Genital SWAB OF ENDOCERVIX / Unknown 09/03/2021 09/04/2021 12:44 AM CDT us Kip Mcdermott MD PATHOLOGY/CYTOLOGY ORDERABL ES Final Result [facility] [address] [place] [address] from Last 3 Months or Most Recently Relevant to Health Maintenance Insurance [facility] OPEN ACCESS HMO Advance Directives For more information, please contact: [phone] * Full Code (Latest Code Status on File) Date Activated Date Inactivated Comments 08/24/2017 3:52 PM 08/28/2017 4:30 PM * Full Code Date Activated Date Inactivated Comments 08/23/2017 12:58 PM 08/24/2017 3:52 PM
[2024-09-01 23:04] LABS: Bacteria Urine 1+ /hpf; Mucus Urine Moderate /lpf; Pregnancy On Board Control Positive; RBC Urine 0-2 /hpf (0-2); Squamous Epithelial Cell Urine Moderate /hpf (Few); Urine Pregnancy Test Negative; WBC Urine 0-3 /hpf (0-3)
[2024-09-01 23:10] LABS: INR 0.9; Prothrombin Time 10.4 Seconds (9.50-12.1)
[2024-09-01 23:11] LABS: Band Neutrophils Percent 0 % (0-6); Basophils Absolute Manual 0.14 K/mm3 (0-0.1); Basophils Percent Manual 1 % (0-1); Eosinophils Absolute Manual 2.07 K/mm3 (0.02-0.50); Eosinophils Percent Manual 14 % (1-6); Lymphocytes Percent Manual 23 % (18-44); Monocytes Absolute Manual 1.03 K/mm3 (0.1-0.90); Monocytes Percent Manual 7 % (3-9); Neutrophils Absolute Manual 8.14 K/mm3 (1.7-7.2); Neutrophils Percent Manual 55 % (46-73); Platelet Estimate Adequate (Adequate); Total Cells Counted 100
[2024-09-01 23:12] LABS: Alanine Aminotransferase 77 U/L (14-59); Albumin Level 3.7 g/dL (3.4-5.0); Alkaline Phosphatase 123 U/L (46-116); Anion Gap 10 mmol/L (4-12); Aspartate Amino Transferase 26 U/L (15-37); Bilirubin,Total 0.3 mg/dL (0.00-1.00); Blood Urea Nitrogen 13 mg/dL (7-18); Carbon Dioxide 26 mmol/L (21-32); Chloride 105 mmol/L (98-108); Estimated CRCL calculation 100 ml/min; Estimated Glomerular Filt Rate > 60; Glucose 110 mg/dL (70-99); Osmolality Calculated 293 mOsm/kg (285-295); Potassium 3.8 mmol/L (3.5-5.1); Sodium 141 mmol/L (136-145); Total Protein 7.5 g/dL (6.4-8.2)
[2024-09-01 23:13] LABS: Lipase 34 U/L (16-77)
[2024-09-01 23:15] LABS: Lactic Acid Reflex 0.7 mmol/L (0.4-2.0)
--- NOTE | 2024-09-01 23:31 | PC.NURSE ---
patient to ct scan via wheelchair per radio frequency technician. update provided before IV start.
[2024-09-01] MEDS: LACTATED RINGERS 1,000 ML 999 ML IV CONT (23:41)
--- NOTE | 2024-09-01 23:43 | PC.NURSE ---
ivf infusing per order, see MAR. patient awake and alert, states she just started feeling not so great again . referring to pain. ERP made aware.
[2024-09-02] MEDS: ONDANSETRON INJ 4 MG/2 ML VIAL IV PUSH (00:06)
[2024-09-02] MEDS: HYDROmorphone HCL INJ (*CRX) 2 MG/ML VIAL 0.5 MG IV PUSH (00:06)
[2024-09-02 00:54] VITALS: BP 97/49; PULSE 61; RESP 18; TEMP 36.5; O2SAT 98
== END 2024-09-02 01:10 | disposition home or self-care (01) ==
PROVIDERS: Emergency Provider Internal Medicine Critical Care Medicine; PCP Nurse Practitioner Family
DX: R74.01 Elevation of levels of liver transaminase levels (principal); R10.9 Unspecified abdominal pain
CPT/HCPCS: 36415; 74177; 80053; 81001; 81025; 83605; 83690; 85025; 85610; 96361; 96374; 96375; 99284; J1171; J2405; J7120; Q9967